=== PATIENT | female | born 1985 | race Two or more races ===

== ENCOUNTER → 2024-10-01 | Outpatient (CLI) | payer OTHER, SELFPAY ==
--- NOTE | 2024-10-01 10:32 | XR_ITS ---
Examination: Lumbar spine, 5 views Technique: Lumbar spine AP, lateral, coned lateral lower lumbar spine, bilateral obliques 5 views Exam date and time: October 01, 2024 1041 hours INDICATIONS: Lifting injury to the lower back today, lower back pain. FINDINGS: Moderate narrowing hip joints Satisfactory alignment lumbar vertebral bodies No lumbar fracture No significant lumbar disc narrowing IMPRESSION: No lumbar fracture No significant lumbar disc narrowing
== END | disposition home or self-care (01) ==
LOC: CDIM 10:27
PROVIDERS: PCP Family Medicine; Referring Provider Family Medicine; Visit Provider Family Medicine
DX: S39.012A Strain of muscle, fascia and tendon of lower back, initial encounter (principal); X58.XXXA Exposure to other specified factors, initial encounter
CPT/HCPCS: 72110

== ENCOUNTER 2025-02-27 07:52 | Emergency (ER) | payer MEDICAID, SELFPAY ==
--- NOTE | 2025-02-27 | XR_ITS ---
Examination: MRI brain without intravenous contrast. Date and time of exam: February 27, 2025 1259 hours INDICATIONS: Onset dizziness episodes beginning yesterday Technique: Multiple axial and sagittal images of the brain obtained. Siemens high-resolution 1.5 Fide short bore scanners utilized. Sagittal sections, T1-weighted, TR 500, TE 14, are performed. Axial sections proton-density and T2-weighted have been obtained. Inversion recovery axial images, TR 9, 260, TE 111, TI 2500. Diffusion weighted images, axial sections, TR 4800, TE 128, B value 1000 Axial sections, ADC map, TR 4800, TE 128 Findings: Enlargement of the sella turcica is not present. The optic chiasm and infundibular are not remarkable. Prepontine and interpeduncular cisterns are not enlarged. There is no localized enlargement of the medulla or aryan. Fourth ventricle and cerebellar tonsils appear normal in position. No subacute area of hemorrhage density is seen. Mass in the cerebellopontine angle region is not evident. Globes symmetrical. Orbital musculature including medial lateral rectus muscles do not exhibit abnormality. Diffusion-weighted images demonstrate no focus of restricted diffusion. Increased white matter signal evident, punctate foci increased signal left parietal white matter FLAIR image 16 Mass effect upon the ventricular system is not identified. Impression: Negative for acute hemorrhage mass effect or midline shift No acute infarct Punctate foci increased signal left parietal white matter, demyelinating disease pattern
[2025-02-27 08:29] VITALS: BP 143/89; PULSE 61; RESP 17; TEMP 36.5; O2SAT 98; BMI 31.2
--- NOTE | 2025-02-27 08:35 | XR_ITS ---
Examination: CT brain head without contrast. 2-D sagittal coronal reconstructions Date and time of exam:February 27, 2025 0845 hours INDICATIONS: Onset headache dizziness today CTDI: vol (mGy):46.2 DLP: (mGycm):918 Technique: Multiple CT axial sections of the brain have been obtained, 5 mm slice thickness. Contrast has not been administered. 2-D sagittal, coronal reconstructions have been obtained Low dose protocols were performed. One or more of the following dose reduction techniques were used; automated exposure control, adjustment of the mA and/or KV according to patient size, use of iterative reconstruction technique. Findings: No significant ventricular enlargement. Intra-axial or extra-axial hemorrhage density is not seen. No mass effect or midline shift Basal cisterns are not remarkable. Fourth ventricle is midline. Cranial vault intact. Mild chronic ethmoid sinusitis Impression: Negative for acute hemorrhage, mass effect or midline shift
--- NOTE | 2025-02-27 08:36 | EKG_ITS ---
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
--- NOTE | 2025-02-27 08:38 | PD.EDRME ---
Rapid Medical Screening Exam RME Arrival date/time: 02/27/25 07:52 39-year-old female presents to the emergency room today for complaints of dizziness today Chief Complaint: Weakness Vital signs: Vital Signs Temperature 97.7 F 02/27/25 08:29 Pulse Rate 61 02/27/25 08:29 Respiratory Rate 17 02/27/25 08:29 Blood Pressure 143/89 H 02/27/25 08:29 Pulse Oximetry (%) 98 02/27/25 08:29 Oxygen Delivery Method Room Air 02/27/25 08:29
[2025-02-27 09:09] LABS: Basophils # (Auto) 0.0 Thou/mm3 (0.0-0.2); Basophils % (Auto) 1 % (0-2.5); Eosinophils # (Auto) 0.0 Thou/mm3 (0.0-0.5); Eosinophils % (Auto) 1 % (0-10); Hematocrit 40.8 % (36.0-46.0); Hemoglobin 14.1 g/dL (12.0-16.0); Immature Granulocytes Auto 0.01 Thou/mm3 (0.00-0.00); Lymphocytes # (Auto) 2.0 Thou/mm3 (1.0-4.8); Lymphocytes % (Auto) 32 % (10-50); Mean Corpuscular HGB Conc 34.6 g/dl (31.0-37.0); Mean Corpuscular Hemoglobin 29.0 pg (25.0-35.0); Mean Corpuscular Volume 84 fL (80-100); Monocytes # (Auto) 0.3 Thou/mm3 (0.0-0.8); Monocytes % (Auto) 5 % (0-12); Neutrophils # (Auto) 3.9 Thou/mm3 (1.8-7.7); Neutrophils % (Auto) 61 % (37-80); Nucleated Red Blood Cell # 0.00 Thou/mm3 (0.00-0.00); Nucleated Red Blood Cell % 0 /100 WBC (0); Platelet Count 219 Thou/mm3 (140-440); RDW Standard Deviation 37.8 fL (36.4-46.3); Red Blood Count 4.87 Miln/mm3 (4.00-5.20); White Blood Count 6.3 Thou/mm3 (3.6-11.0)
[2025-02-27 09:32] LABS: Alanine Aminotransferase 33 U/L (10-49); Albumin, Serum 4.6 gm/dL (3.5-5.0); Albumin/Globulin Ratio 1.8 (1.2-2.2); Alkaline Phosphatase 106 U/L (46-116); Anion Gap 7 (7-16); Aspartate Amino Transferase 32 U/L (0-34); BUN/Creatinine Ratio 11 Ratio (12-20); Bilirubin,Total 0.6 mg/dL (0.3-1.2); Blood Urea Nitrogen 9 mg/dL (9-23); Calcium 9.3 mg/dL (8.3-10.6); Calcium (Corrected) 9.3 mg/dL (8.5-10.1); Carbon Dioxide 26.9 mMol/L (20.0-31.0); Chloride 106 mMol/L (98-107); Creatinine (Component) 0.8 mg/dL (0.6-1.3); Estimated Creatinine Clearance 83.1 mL/min (>60); Globulin 2.5 gm/dL (2.3-3.5); Glucose 127 mg/dL (74-106); Osmolality,Calculated 280 (275-295); Potassium 4.5 mMol/L (3.4-5.1); Sodium 140 mMol/L (136-145); Total Protein 7.1 gm/dL (5.7-8.2); Troponin I < 0.002 ng/mL (0.0-0.045); eGFR > 60 See Note
[2025-02-27 09:40] VITALS: BP 155/88; PULSE 56; RESP 14; TEMP 36.6; O2SAT 98
[2025-02-27 09:53] LABS: Collection Type, Urine Clean Catch
[2025-02-27 09:59] VITALS: BP 127/68; PULSE 60; RESP 18; TEMP 36.6; O2SAT 98
[2025-02-27 10:00] LABS: HCG Qualitative,Urine Negative
[2025-02-27 10:01] LABS: Bilirubin,Urine Negative (Negative); Blood,Urine Negative (Negative); Clarity,Urine Clear (Clear/Hazy); Color,Urine Lt-Yellow (Lt Yel-Yel); Culture Indicated,Urine Not Indicated; Glucose, Urine Negative (Negative); Ketones,Urine Negative (Negative); Leukocyte Esterase,Urine Negative (Negative); Nitrite,Urine Negative (Negative); PH,Urine 6.0 (5.0-7.0); Protein,Urine Negative (Neg - Trace); RBC,Urine 2 /hpf (0-3); Specific Gravity,Urine 1.015 (1.001-1.035); Squamous Epithelial Cell,Urine 2 /hpf (0-5); Urobilinogen,Urine Negative mg/dL (0.0-1.0); WBC,Urine 1 /hpf (0-5)
[2025-02-27 10:04] LABS: Amphetamine/Methamp Scrn,U Negative (Negative); Barbiturate Screen,Urine Negative (Negative); Benzodiazepines Screen,Urine Negative (Negative); Benzoylecgonine Screen, Ur Negative (Negative); Fentanyl Screen,Urine Negative (Negative); Opiate Screen,Urine Negative (Negative); THC Screen,Urine Negative (Negative)
--- NOTE | 2025-02-27 10:13 | PD.EDWEAK ---
ED Weakness RME/HPI General Chief complaint: Weakness Stated complaint: WEAK, NAUSEA Time Seen by Provider: 02/27/25 09:57 Arrival date/time: 02/27/25 07:52 RME / HPI RME / HPI Narrative: 02/27/25 07:52 39-year-old female presents to the emergency room today for complaints of dizziness today DR. JAIN MAIN ED EVALUATION 39 year old female with history of diabetes on Metformin presents to the ED for evaluation of dizziness beginning yesterday afternoon. Described the initial sensation as feeling drunk , which lasted several minutes and improved with rest. Symptoms recurred briefly after bending down at home, again resolving within minutes. States at 05:30AM today she got up to use the restroom and required holding on to the tafoya due to feeling very unsteady. Since then, the dizziness has been persistent. She reports that symptoms worsen with head movements and are mildly relieved by lying still. Associated with nausea, cold sweats, and mild shortness of breath when dizziness is at its worst. Denies any history of similar dizziness. Denies fevers, chills, sore throat, headache, ear pain, cough, abdominal pain, vomiting, or urinary symptoms. Denies any unilateral weakness. Related Data Previous Rx's ?Medication ?Instructions ?Recorded ibuprofen 600 mg tablet 600 mg PO TID PRN pain #30 tabs 12/09/22 meclizine 25 mg tablet 25 mg PO TID PRN dizziness #20 tabs 02/27/25 Allergies Allergy/AdvReac Type Severity Reaction Status Date / Time No Known Allergies Allergy Verified 02/27/25 07:55 Review of Systems Review of Systems Systems Reviewed: All systems reviewed, normal except as documented Past Medical History Past Medical History ENDOCRINE: Positive Diabetes Mellitus Type 2 Social History SMOKING STATUS: Never smoker SECOND HAND EXPOSURE: No ED Exam Narrative Physical exam: Constitutional: Awake, alert, nontoxic, no acute distress HEENT: NC, AT, EOMI Neck: Supple CV: RRR, no m/r/g Lungs: CTAB, no w/r/r, no respiratory distress. Abd: Soft, NT, NT, no HSM noted to palpation Extremities: No deformities, no edema noted Neuro: AAOx3, CN 2-12 GIBL, mild decreased sensation to the right lower extremity, no nystagmus. Skin: Warm, dry, intact Course Course Course Narrative: 1020h: Patient coming in for dizziness that onset yesterday, feeling worse today, right sided paresthesias to arm and leg as well. No other symptoms. No previous history of same. Initial CT brain no acute. Given persistent symptoms, will check MRI brain to rule out posterior circulation stroke. 1400h: Patient with MRI findings as noted in chart. Called neurology to discuss. Dr. Multani will call us back. 1410h: I spoke with neurologist Dr. Multani regarding patient's presentation and ED course thus far. She will be down to evaluate patient in ED. Patient notes that she has mild improvement in dizziness at this time after dose of meclizine 50 mg. 1725h: Spoke with Dr. Multani again regarding patient. States that she is nearly done with clinic and will be coming over right after to see the patient in ED. The plan will be to discuss MRI results, examined patient, and then discharge afterwards. Will await discharge until neurology sees patient. Will sign patient out to Dr. Marsh pending previous. Quality Measures none Orders Category Date Time Status EKG (ED ONLY) *Do not use* NOW Care 02/27/25 08:36 Completed MRI Screening NOW Care 02/27/25 10:50 Active Consult to Physician Stat Cons 02/27/25 15:[address] head/brain wo con Stat Exams 02/27/25 08:35 Completed EKG (ED Only) Stat Exams 02/27/25 08:36 Draft MR head/brain wo con Stat Exams 02/27/25 Completed CBC Stat Lab 02/27/25 08:58 Completed Comprehensive Metabolic Panel Stat Lab 02/27/25 08:58 Completed Drug Screen,Urine Stat Lab 02/27/25 09:47 Completed HCG Qualitative,Urine Stat Lab 02/27/25 09:49 Completed Troponin I Stat Lab 02/27/25 08:58 Completed Urinalysis, C/S if Indicated Stat Lab 02/27/25 09:49 Completed Meclizine HCl [Antivert] Med 02/27/25 10:49 Discontinued 50 mg PO X1 ONE Vital Signs Vital signs: Vital Signs Temperature 97.7 F 02/27/25 08:29 Pulse Rate 61 02/27/25 08:29 Respiratory Rate 17 02/27/25 08:29 Blood Pressure 143/89 H 02/27/25 08:29 Pulse Oximetry (%) 98 02/27/25 08:29 Oxygen Delivery Method Room Air 02/27/25 08:29 Pulse ox is 98% on room air which is adequate. Weakness MDM Narrative MDM Narrative:: Teena Mars am scribing for and in the presence of Dr. Jain. Patient data External records reviewed:: [facility] previous records Clinical information provided by:: patient Social determinants that could affect healthcare access:: none Patient has the following chronic illnesses:: DM How is presenting disease/condition affected by chronic disease/condition?: exacerbated by Evaluation data The following diagnostics were reviewed and interpreted by me:: lab results, radiology exam(s) and EKG tracing(s) (NSR, rate 60, no acute ischemic changes, no STEMI. ) Lab and/or radiology exams considered but not ordered:: None Interpretation Summary: Ordering Physician: Azeb FINE)Richie NP Date of Service: 02/27/25 Procedure(s): CT head/brain wo con Accession Number(s): [id number] cc: Azeb FINE),Richie JON; Saurav Lee MD; Juan Carlson MD~ Examination: CT brain head without contrast. 2-D sagittal coronal reconstructions Date and time of exam:February 27, 2025 0845 hours INDICATIONS: Onset headache dizziness today CTDI: vol (mGy):46.2 DLP: (mGycm):918 Technique: Multiple CT axial sections of the brain have been obtained, 5 mm slice thickness. Contrast has not been administered. 2-D sagittal, coronal reconstructions have been obtained Low dose protocols were performed. One or more of the following dose reduction techniques were used; automated exposure control, adjustment of the mA and/or KV according to patient size, use of iterative reconstruction technique. Findings: No significant ventricular enlargement. Intra-axial or extra-axial hemorrhage density is not seen. No mass effect or midline shift Basal cisterns are not remarkable. Fourth ventricle is midline. Cranial vault intact. Mild chronic ethmoid sinusitis Impression: Negative for acute hemorrhage, mass effect or midline shift Dictated By: Juan Carlson MD Signed By: <Electronically signed by Juan Carlson MD in OV> 02/27/25 0937 MRI BRAIN Impression: Negative for acute hemorrhage mass effect or midline shift No acute infarct Punctate foci increased signal left parietal white matter, demyelinating disease pattern Medications / Prescriptions Medications or Prescriptions considered but not ordered:: None Medication administrations:: Medication Administration History Discontinued Medications Meclizine HCl (Meclizine Hcl 25 Mg Tablet) 50 mg PO X1 ONE Stop: 02/27/25 10:50 Last Admin: 02/27/25 10:57 Dose: 50 mg Documented By: VL See above Consultations Consultation(s) initiated? (list below): Yes Consultation #1 (Physician, Specialty, Details): See course Diagnosis Weakness Differential Diagnosis: anemia, sepsis, dehydration and other (vertigo, CVA, ICH) Most likely diagnosis given after review of the tests above:: Vertigo Admission Indicated Admission indicated?: not indicated Explain why admission is indicated or not indicated:: Signed out pending final disposition Admission Request Was there a request for admission?: No Disposition Plan Disposition Plan: other (specify) (Signed out to Dr. Marsh at 6pm. ) Discharge Plan Prescriptions/Referrals Prescriptions/Med Rec: New meclizine 25 mg tablet 25 mg PO TID PRN (Reason: dizziness) Qty: 20 0RF No Action ibuprofen 600 mg tablet 600 mg PO TID PRN (Reason: pain) Qty: 30 0RF Referrals: Saurav Lee MD [Primary Care Provider, Family Practice] - In 1 week Problem List Clinical Impression: Vertigo Patient/Caregiver Discharge Instructions Print Language: Czech
--- NOTE | 2025-02-27 10:24 | PC.NURSE ---
PATIENT CAME IN TO ED THROUGH FRONT LOBBY FOR DIZZINESS THAT STARTED YESTERDAY AROUND 1200. PATIENT STATED SHE WAS HAVING DIZZINESS BLURRED VISION AND NAUSEA WHEN IT STARTED; SINCE THEN THE BLURRED VISION HAS GONE AWAY, BUT SHE IS STILL VERY DIZZY TODAY. PATIENT EXPLAINS DIZZINESS FEELS WORSE WHEN SHE TURNS TO HER SIDES. PATIENT IS ALERT AND ORIENTED X4. VITALS ARE STABLE. PATIENT STATING MILD DECREASED SENSATION TO HER RIGHT ARM AND LEG. DR. JAIN MADE AWARE. DR. JAIN AT BEDSIDE TO EVALUATE PATIENT
[2025-02-27] MEDS: MECLIZINE HCL 25 MG TABLET 50 MG PO (10:57)
[2025-02-27 14:19] VITALS: BP 118/71; PULSE 59; RESP 17; TEMP 36.9; O2SAT 99
[2025-02-27 17:26] VITALS: BP 117/71; PULSE 61; RESP 16; O2SAT 95
--- NOTE | 2025-02-27 18:13 | EDNOTE_ITS ---
Emergency Room Addendum Addendum Narrative: 1800: Care assumed from Dr. Haley, the previous shift emergency physician. Past medical, surgical, social and family history reviewed. Vitals and home medications reviewed. Results and treatment plan discussed. I will assume the care of the patient at this time and will follow the patient, pending evaluation by Dr. Multani. Please refer to the emergency department record for history and examination from initial visit. The following addendum documentation note is intended to reflect any pending information, findings, or radiology results not included in the patient?s initial chart. 1944: Dr. Multani came and evaluated the patient. After discussing the case with her, she feels the patient is stable to be discharged home and can follow- up with her PCP as an outpatient.
[2025-02-27 18:25] LABS: Vitamin B12 300 pg/mL (211-911); Vitamin D 25 Hydroxy Total 17.0 ng/mL (7.3-40.2)
[2025-02-27 20:02] VITALS: BP 106/61; PULSE 59; RESP 16; TEMP 36.9; O2SAT 96
--- NOTE | 2025-02-28 00:20 | PD.RESCONSUL ---
HPI Data of Consult Consult date: 02/27/25 Attending Provider: Sanket Multani MD Primary Care Provider: Saurav Lee MD Consult Narrative Reason for consult: dizziness History of present illness: Savi Sales is 39 yr female with PMH of diabetes on metformin who presented to ED with chief complaint of dizziness that started yesterday afternoon. Patient stated that dizziness gets worse with head movement and positional changes such as bending forward. Patient felt worse when trying to use the bathroom and endorsed an unsteady gait. She has decreased appetite with nausea, vomiting. Denies any similar episodes in the past. Denies any recent sick contacts, viral illnesses, ringing in the ears, headache, chest pain, abdominal pain, dysuria. CT head was negative, vitals were stable, labs remarkable for B12 300, vitamin D 17,UA negative, U tox negative. MRI showed punctate foci in the left parietal white matter. Patient was encouraged to continue B12 supplement 2500 mcg daily and vitamin D supplements 5000 units daily. Symptoms resolved while in the ED. On physical exam dizziness was exacerbated by any head movement. She denies any smoking or drinking. cc:: cc: Review of Systems Review of Systems Systems Reviewed: All systems reviewed, normal except as documented Exam Vital Signs Temp Pulse Resp BP Pulse Ox O2 Del Method 98.5 F 59 L 16 106/61 96 Room Air 02/27/25 20:02 02/27/25 20:02 02/27/25 20:02 02/27/25 20:02 02/27/25 20:02 02/27/25 20:02 Narrative Exam General: Middle age female, No acute distress, cooperative HEENT: NCAT, No JVD noted. Mucosa dry. Pupils are equal and reactive to light bilaterally Cardiovascular: Normal S1 and S2. Regular rate and rhythm. Respiratory: Lungs are clear to auscultation bilaterally. No wheezing or crackles heard. Abdomen: Soft, nontender, not distended, normal bowel sounds. Skin: Warm to touch, dry, no rashes noted Musculoskeletal: No gross injuries. Able to move all 4 extremities. No pitting edema Neuro: Alert and oriented x3. No focal neuro deficits. No nystagmu Psych: Normal affect and mood Results Labs 02/27/25 08:58 02/27/25 08:58 Labs: Short CBC 02/27/25 Range/Units 08:58 WBC 6.3 (3.6-11.0) Thou/mm3 Hgb 14.1 (12.0-16.0) g/dL Hct 40.8 (36.0-46.0) % Plt Count 219 (140-440) Thou/mm3 BMP 02/27/25 08:58 Sodium 140 Potassium 4.5 Chloride 106 Carbon Dioxide 26.9 BUN 9 Creatinine 0.8 Glucose 127 H Calcium 9.3 Cardiac Enzymes 02/27/25 Range/Units 08:58 Troponin I < 0.002 (0.0-0.045) ng/mL Liver Function 02/27/25 Range/Units 08:58 Total Bilirubin 0.6 (0.3-1.2) mg/dL AST 32 (0-34) U/L ALT 33 (10-49) U/L Alkaline Phosphatase 106 (46-116) U/L Albumin 4.6 (3.5-5.0) gm/dL Urine 02/27/25 Range/Units 09:49 Urine Color Lt-Yellow (Lt Yel-Yel) Urine Clarity Clear (Clear/Hazy) Urine pH 6.0 (5.0-7.0) Ur Specific [place] 1.015 (1.001-1.035) Urine Protein Negative (Neg - Trace) Urine Glucose (UA) Negative (Negative) Quality Measures Quality Measures none Medications Home Medications and Allergies Allergies Allergy/AdvReac Type Severity Reaction Status Date / Time No Known Allergies Allergy Verified 02/27/25 07:55 Visit Medications Discontinued Medications Meclizine HCl (Meclizine Hcl 25 Mg Tablet) 50 mg PO X1 ONE Stop: 02/27/25 10:50 Last Admin: 02/27/25 10:57 Dose: 50 mg Assessment & Plan Plan Savi Sales is 39 yr female with PMH of diabetes on metformin who presented to ED with chief complaint of dizziness that started yesterday afternoon. Patient stated that dizziness gets worse with head movement and positional changes such as bending forward. Neurology was consulted for evalutation of dizziness. #Dizziness #Nausea DDx: Vestibular neuritis, M?ni?re's disease, BPPV, stroke, dehydration. Patient has no sick contacts recently or auditory changes. Symptoms include what dose of meclizine. Most likely patient has BPPV. - Meclizine as needed - Physical therapy outpatient - Vitamin B12 2500 mcg daily - Vitamin D 3 5000 units daily - -oral hydration #Non insulin dependent Diabetes A1c non on file. Glucose 127, takes metformin at home. -monitor glucose levels Primary care team to manage above conditions and ongoing care needs. The patient's management plan was discussed with my attending physician Dr. Multani. Keyla Bautista, PGY-2 Attending Provider Attestation/Addendum I personally have seen and examined the patient at the bedside and I agree with resident's findings, assessment and plan of care. Patient presenting symptoms most likely related To benign paroxysmal positional vertigo, will benefit from physical therapy evaluation as an outpatient, taking B12 and vitamin D as instructed daily. Will see her back in clinic in 2 weeks upon referral from primary. Patient is stable for discharge home.
== END 2025-02-27 20:09 | disposition home or self-care (01) ==
PROVIDERS: Nurse Practitioner Primary Care; Emergency Provider Emergency Medicine; PCP Family Medicine
DX: F10.129 Alcohol abuse with intoxication, unspecified (principal); R51.9 Headache, unspecified; E11.9 Type 2 diabetes mellitus without complications; Y90.9 Presence of alcohol in blood, level not specified
CPT/HCPCS: 36415; 70450; 70551; 80053; 80307; 81001; 81025; 82306; 82607; 82652; 84484; 85025; 93005; 99284; A9270